=== PATIENT | female | born 1990 | race Caucasian/White ===

== ENCOUNTER 2020-01-22 10:45 | Outpatient (CLI) | payer OTHER, SELFPAY ==
--- NOTE | ~2020-01-22 | US_ITS ---
EXAMINATION: US OB <= 14 weeks fetus DATE: 01/22/2020 12:08 INDICATION: Suppression of menstruation TECHNIQUE: Real-time transabdominal obstetric ultrasound. FINDINGS: No prior studies for comparison. The uterus measures 11.2 x 6.5 x 7.9 cm. There is an intrauterine gestational sac, with pole id entified. The crown rump length measures 1.26 cm, which correlates with a estimated gestational age of 7 weeks 3 days. heart tones are identified measuring 165 bpm. There is a small subchorioni c hemorrhage measuring 1.4 x 0.4 x 0.9 cm. Right ovary is normal measuring 3.1 x 1 x 1.5 cm. There is a small 1.2 cm corpus luteal cyst left ovary which measures 3.3 x 2 x 2.2 cm. IMPRESSION: 1. SL IUP with an EGA of 7 weeks, 3 days (EDC by current ultrasound of 09/06/2020). 2: Small subchorionic hemorrhage. Reviewed, dictated and finalized at location A. IMPRESSION: 1. SL IUP with an EGA of 7 weeks, 3 days (EDC by current ultrasound of 09/06/20 20). 2: Small subchorionic hemorrhage.
== END 2020-01-22 10:46 | disposition home or self-care (01) ==
LOC: CHSIMG 10:49
PROVIDERS: PCP Obstetrics & Gynecology; Visit Provider Obstetrics & Gynecology
DX: N92.5 Other specified irregular menstruation (principal)
CPT/HCPCS: 76801

== ENCOUNTER 2020-05-14 20:50 | Observation (INO) | payer OTHER, SELFPAY ==
[2020-05-14 21:13] VITALS: BMI 27.4
--- NOTE | 2020-05-14 21:13 | OBADM ---
This patient, Halie Ashraf, admitted to the OB room OB Post 113 for observation. Patient/family oriented to hospital policies and general routines including ID bracelet, bed and alarms, visiting hours, pain management, procedures, bathroom and other care routines, personal items, smoking policy, room service/diet, and visiting hours. Patient/Family are encouraged to report perceived risks to care and to ask questions if they do not understand what they are told or what they should do.
--- NOTE | 2020-05-18 21:11 | PM.OBTRLD ---
OB - Triage/Final Diagnosis Final Diagnosis (1) False labor: Code(s): O47.9 - False labor, unspecified Status: Acute
== END 2020-05-14 22:04 | disposition home or self-care (01) ==
PROVIDERS: Admitting Provider Obstetrics & Gynecology; Visit Provider Obstetrics & Gynecology
DX: O47.9 False labor, unspecified (principal); Z3A.00 Weeks of gestation of pregnancy not specified
CPT/HCPCS: G0378; G0379

== ENCOUNTER → 2020-06-06 | Emergency (ER) | payer OTHER, SELFPAY ==
--- NOTE | 2020-06-06 14:57 | PC.NURSE ---
Patient presents to intake and states that she changed her mind and does not want to be seen at this time. She is leaving the ED prior to being triaged.
== END | disposition left against medical advice (07) ==
LOC: ANHED 09-22 13:16
DX: Z53.21 Procedure and treatment not carried out due to patient leaving prior to being seen by health care provider (principal)
CPT/HCPCS: 99199

== ENCOUNTER 2020-06-07 10:27 | Emergency (ER) | payer OTHER, SELFPAY ==
--- NOTE | ~2020-06-07 | XR_ITS ---
XR chest 1V portable DATE: 06/07/2020 11:45 INDICATION: Shortness of breath and cough. Sore throat. TECHNIQUE: Portable AP chest on 06/07/2020 at 1139 hours COMPARISON: None FINDINGS: Normal heart size. No hilar or mediastinal enlargement. The lungs are clear of infiltrate o r consolidation. No pleural effusion or pulmonary vascular congestion or pneumothorax. IMPRESSION: No active cardiopulmonary disease Reviewed, dictated and finalized at location A.
[2020-06-07 10:34] VITALS: BP 132/77; PULSE 103; RESP 18; TEMP 36.8; O2SAT 100
--- NOTE | 2020-06-07 11:59 | ED.URI ---
HPI - URI/Sore Throat General Chief Complaint: Upper Respiratory Infection <MIGEL Garcia Last Filed: 06/07/20 13:50> Stated Complaint: congested/cough <MIGEL Garcia Last Filed: 06/07/20 13:50> Time Seen by Provider: 06/07/20 10:34 <MIGEL Garcia Last Filed: 06/07/20 13:50> Source: patient <MIGEL Gacria Last Filed: 06/07/20 13:50> Mode of arrival: ambulatory <MIGEL Garcia Last Filed: 06/07/20 13:50> Limitations: no limitations <MIGEL Garcia Last Filed: 06/07/20 13:50> History of Present Illness HPI Narrative: Patient is a 29-year-old female who presents with upper respiratory symptoms for the last 7 days patient is currently 27 weeks patient is G 9 P1. Patient notes nonproductive cough chills some dyspnea congestion rhinorrhea. Patient took Mucinex today. Patient denies any vomiting diarrhea abdominal pain pelvic pain vaginal bleeding or discharge. Patient is 28 weeks per ultrasound followed by Dr. Acosta. Patient on arrival in no distress. Patient notes that she also has a sick child. Patient denies any other COVID or sick exposures <MIGEL Garcia Last Filed: 06/07/20 13:50> Related Data Home Medications: Home Medications Medication Instructions Recorded Confirmed PNV cmb#95-ferrous fumarate-FA tablet PO 06/07/20 [] aspirin [Aspir-81] 06/07/20 <MIGEL Garcia Last Filed: 06/07/20 13:50> Allergies/Adverse Reactions: Allergies Allergy/AdvReac Type Severity Reaction Status Date / Time vancomycin Allergy Severe Anaphylactic Verified 06/07/20 10:36 Shock Sulfa (Sulfonamide Allergy Mild Hives / Verified 06/07/20 10:36 Antibiotics) Red Face <MIGEL Garcia Last Filed: 06/07/20 13:50> Review of Systems Review of Systems: All systems reviewed & are unremarkable except as noted in HPI and below <MIGEL Garcia Last Filed: 06/07/20 13:50> [facility] Social History Social History: Social History (Updated 06/07/20 @ 12:01 by Awais Buckner PA-C) Smoking status: Never smoker Gender identity (if verbalized by the patient): Female <Awais Buckner PA-C - Last Filed: 06/07/20 13:50> Exam Narrative: Exam Narrative: GENERAL: Well-appearing, well-nourished, and in no acute distress. HEAD: Normocephalic, atraumatic. EYES: PERRLA and EOMI. ENT: Nares clear, no rhinorrhea or epistaxis. Mucous membranes moist. Oropharynx without tonsillar hypertrophy exudate or other lesions. NECK: Supple. No adenopathy or masses. CHEST: Clear to auscultation. No respiratory distress. No wheezes rales or rhonchi HEART: Regular rate and rhythm. No murmur heard. Normal peripheral pulses. ABDOMEN: Soft, nontender,distended EXTREMITIES: Normal range of motion. No edema. SKIN: Warm, dry, no rash. NEURO: No focal deficits. Alert and oriented x3. PSYCH: Normal mood and affect. <Awais Buckner PA-C - Last Filed: 06/07/20 13:50> Course Course Emergency Course: Patient in the room in no distress resting comfortably had normal findings on blood work with no pneumonia seen on chest x-ray are auscultated on exam patient with no abdominal or pelvic complaints heart tones were obtained and normal. Discussion was made with ore puncher who is aware of the COVID testing and recommends close follow-up. <Awais Buckner PA-C - Last Filed: 06/07/20 13:50> Consultations Consultation #1: Spoke with on-call ore puncher Dr. Dawson regarding the patient's clinical presentation and findings recommends that the patient can follow-up outpatient and will follow the COVID testing. Recommend supportive care medications to treat her symptoms and would like the patient to be given reasons to return <Awais Buckner PA-C - Last Filed: 06/07/20 13:50> Date: 06/07/20 <Awais Buckner PA-C - Last Filed: 06/07/20 13:50> Time:
[2020-06-07] MEDS: FAMOTIDINE 20 MG/2 ML VIAL IV PUSH (12:16)
[2020-06-07] MEDS: SODIUM CHLORIDE 0.9% IV 1,000 ML 999 ML IV CONT (12:16)
[2020-06-07 12:20] LABS: Basophils Absolute Auto 0.1 K/mm3 (0.0-0.1); Basophils Percent Auto 0.4 % (0.2-1.2); Eosinophils Absolute Auto 0.2 K/mm3 (0-0.3); Eosinophils Percent Auto 1.7 % (0-4.4); Hematocrit 35.3 % (37.0-47.0); Hemoglobin 12.2 g/dL (12.0-15.0); Immature Granulocyte Absolute 0.13 K/mm3 (0.00-0.031); Lymphocytes Absolute Auto 1.21 K/mm3 (0.9-3.2); Lymphocytes Percent Auto 9.1 % (18.3-44.2); Mean Corpuscular HGB Conc 34.6 g/dl (32-36); Mean Corpuscular Hemoglobin 30.6 pg (26-34); Mean Corpuscular Volume 88.5 fl (80-100); Mean Platelet Volume 10.3 fl (7.4-10.4); Monocytes Absolute Auto 0.8 K/mm3 (0.1-0.6); Monocytes Percent Auto 6.1 % (2.6-8.5); Neutrophils Absolute Auto 10.9 K/mm3 (1.3-6.7); Neutrophils Percent Auto 81.7 % (45.5-73.1); Platelet Count Result 215 k/mm3 (150-375); Red Blood Count 3.99 M/mm3 (4.2-5.4); Red Cell Distribution Width 13.2 % (11.5-14.5); White Blood Count 13.3 K/mm3 (4.5-10.0)
[2020-06-07 12:36] LABS: Lactic Acid Reflex 1.1 mmol/L (0.7-2.1)
[2020-06-07 12:37] LABS: Alanine Aminotransferase 12 U/L (4-35); Albumin Level 3.3 g/dL (3.5-5.1); Alkaline Phosphatase 103 U/L (38-126); Anion Gap 9.4 mmol/L (7-16); Aspartate Amino Transferase 17 U/L (14-36); Bilirubin,Total 0.1 mg/dL (0.2-1.3); Blood Urea Nitrogen 6 mg/dL (7-17); Calcium 8.2 mg/dL (8.4-10.2); Carbon Dioxide 22 mmol/L (22-30); Chloride 107 mmol/L (98-107); Estimated CRCL calculation 191 ml/min; Estimated Glomerular Filt Rate > 60; Glucose 106 mg/dL (65-105); Potassium 3.4 mmol/L (3.4-5.0); Sodium 135 mmol/L (137-145)
[2020-06-07 13:24] VITALS: BP 136/84; PULSE 94; RESP 17; O2SAT 98
[2020-06-10 03:17] LABS: SARS-CoV-2 RNA PCR Negative
== END 2020-06-07 14:14 | disposition home or self-care (01) ==
PROVIDERS: Emergency Medicine Emergency Medical Services; Emergency Provider General Practice
DX: O99.513 Diseases of the respiratory system complicating pregnancy, third trimester (principal); J06.9 Acute upper respiratory infection, unspecified; Z20.828 Contact with and (suspected) exposure to other viral communicable diseases; Z3A.28 28 weeks gestation of pregnancy
CPT/HCPCS: 36415; 71045; 80053; 83605; 85025; 87040; 87635; 96374; 96375; 99284; C9803; J0131; J7030; U0003

== ENCOUNTER 2020-06-26 09:41 | Outpatient (CLI) | payer OTHER, SELFPAY ==
[2020-06-26 11:08] LABS: Hematocrit 37.3 % (37.0-47.0); Hemoglobin 12.8 g/dL (12.0-15.0)
[2020-06-26 11:23] LABS: Glucose 1 Hour PP 50gm Dose 132 mg/dL
[2020-06-26 12:05] LABS: HIV 1/2 Ab P24 Ag Result Negative (Negative)
== END 2020-06-26 09:42 | disposition home or self-care (01) ==
LOC: ANHLAB 09:42
PROVIDERS: Visit Provider Obstetrics & Gynecology
DX: Z34.92 Encounter for supervision of normal pregnancy, unspecified, second trimester (principal); Z3A.00 Weeks of gestation of pregnancy not specified
CPT/HCPCS: 36415; 82947; 85014; 85018; 86703; G0432

== ENCOUNTER 2020-08-29 12:01 | Outpatient (CLI) | payer OTHER, SELFPAY ==
[2020-08-29 12:41] LABS: Hematocrit 36.2 % (37.0-47.0); Hemoglobin 12.3 g/dL (12.0-15.0); Mean Corpuscular Hemoglobin 29.3 pg (26-34); Mean Corpuscular Volume 86.2 fl (80-100); Mean Platelet Volume 9.8 fl (7.4-10.4); Platelet Count Result 231 k/mm3 (150-375); Red Cell Distribution Width 13.5 % (11.5-14.5); White Blood Count 15.3 K/mm3 (4.5-10.0)
[2020-08-31 08:22] LABS: Rapid Plasma Reagin Non-Reactive (NonReactive)
== END 2020-08-29 12:02 | disposition home or self-care (01) ==
PROVIDERS: Visit Provider Obstetrics & Gynecology
DX: Z01.818 Encounter for other preprocedural examination (principal)
CPT/HCPCS: 36415; 85027; 86592; 86850; 86900; 86901

== ENCOUNTER 2020-08-31 05:29 | Inpatient (IN) | payer OTHER, SELFPAY ==
--- NOTE | 2020-08-30 08:56 | WPDANESEPP ---
Anes - Eval Pre Procedure Procedure: Operation Date: 08/31/20 07:30 Proposed Procedures p Primary Section - Moe Acosta MD Date/Time: 08/30/20 08:56 Surgeon: Karla Preop Diagnosis: primary c section Pre Op Diagnosis: Pre-admit- herpes outbreak Patient Data Age: 29 Gender: F Height: Weight: Allergies Allergy/AdvReac Type Severity Reaction Status Date / Time vancomycin Allergy Severe Anaphylactic Verified 06/07/20 10:36 Shock Sulfa (Sulfonamide Allergy Mild Hives / Verified 06/07/20 10:36 Antibiotics) Red Face Home Medications Medication Instructions Recorded Confirmed Type PNV cmb#95-ferrous fumarate-FA 1 tablet PO DAILY 08/15/20 08/15/20 History [] aspirin 81 mg PO DAILY 08/15/20 08/15/20 History Patient hx anesthesia problems: none Family hx anesthesia problems: none PMFSH Family History Family History (Updated 08/15/20 @ 13:32 by Saleem Mathis RN) Other No pertinent family history Social History Social History (Updated 06/07/20 @ 12:01 by Awais Buckner PA-C) Smoking status: Never smoker Substance use: never Gender identity (if verbalized by the patient): Female Spiritual care concerns: No Exam Day of Procedure 08/30/20 08:56
[2020-08-31] VITALS (48 sets, daily range): BP systolic 98–124; BP diastolic 49–78; PULSE 60–98; RESP 14–20; TEMP 36.1–37.2; O2SAT 96–100; BMI 30.8
[2020-08-31] MEDS: LACTATED RINGERS 1,000 ML 999 ML IV CONT ×2 (06:14→06:52)
--- NOTE | 2020-08-31 07:13 | PM.IMHP ---
H&P: HPI History of Present Illness Date/Time: 08/31/20 07:13 Chief complaint: C/S Narrative: Halie Ashraf is a 29 year old female presents for primary low transverse section. Had a previous vaginal delivery without complication. care without abnormality though she does have a history of herpes simplex and was found to have lesion early last week. Options were discussed and she has decided to proceed with delivery. Review of Systems Review of Systems: All systems reviewed & are unremarkable except as noted in HPI and below PMFSH Family History Family History Other No pertinent family history Social History Social History Smoking status: Never smoker Second hand tobacco smoke exposure: No Substance use: never Gender identity (if verbalized by the patient): Female Spiritual care concerns: No Meds Home Medications and Allergies Home Medications Medication Instructions Recorded Confirmed Type PNV cmb#95-ferrous fumarate-FA 1 tablet PO DAILY 08/15/20 08/15/20 History [] aspirin 81 mg PO DAILY 08/15/20 08/15/20 History Allergies Allergy/AdvReac Type Severity Reaction Status Date / Time vancomycin Allergy Severe Anaphylactic Verified 06/07/20 10:36 Shock Sulfa (Sulfonamide Allergy Mild Hives / Verified 06/07/20 10:36 Antibiotics) Red Face Vital Signs Vital Signs - 24 hr 08/31/20 06:01 08/31/20 06:30 Pulse Rate 80 70 Blood Pressure 124/77 120/76 Exam Const: General: cooperative Resp: Effort & Inspection: normal respiratory effort Cardio: Rate: regular rate Rhythm: regular rhythm GI: Inspection: normal to inspection ( Fundal height 40cm heart tones 140) : Manual OB Exam: Deferred manual OB exam Assessment and Plan Assessment and plan (1) 39 weeks gestation of : Code(s): Z3A.39 - 39 weeks gestation of Status: Acute (2) HSV (herpes simplex virus) infection: Code(s): B00.9 - Herpesviral infection, unspecified Status: Acute
--- NOTE | 2020-08-31 07:16 | WPDHPUPDATE1 ---
History and Physical Update Update Date/Time: 08/31/20 07:16 History and Physical has been reviewed, including an updated exam of the patient. There are NO changes in the patient's condition. Risks, benefits, and alternatives have been discussed and questions answered. Patient agrees to proceed with procedure.
--- NOTE | 2020-08-31 07:17 | WPDANESEPPF ---
Anes - Initial Pre Proc Eval Procedure: Operation Date: 08/31/20 07:30 Proposed Procedures p Primary Section - Moe Acosta MD Date/Time: 08/31/20 07:17 Surgeon: Moe Acosta MD Pre Op Diagnosis: C/S Patient Data Age: 29 Gender: F Height: 1.73 m Weight: 92 kg Last Vital Signs Pulse 70 08/31/20 06:30 BP 120/76 08/31/20 06:30 Allergies Allergy/AdvReac Type Severity Reaction Status Date / Time vancomycin Allergy Severe Anaphylactic Verified 06/07/20 10:36 Shock Sulfa (Sulfonamide Allergy Mild Hives / Verified 06/07/20 10:36 Antibiotics) Red Face Home Medications Medication Instructions Recorded Confirmed Type PNV cmb#95-ferrous fumarate-FA 1 tablet PO DAILY 08/15/20 08/15/20 History [] aspirin 81 mg PO DAILY 08/15/20 08/15/20 History Patient hx anesthesia problems: none Family hx anesthesia problems: none PMFSH Family History Family History Other No pertinent family history Social History Social History Smoking status: Never smoker Second hand tobacco smoke exposure: No Substance use: never Gender identity (if verbalized by the patient): Female Spiritual care concerns: No Anes - Eval Final PreProcedure Day of Procedure 08/31/20 07:17 Patient weight: overweight Heart: regular rate and rhythm Lungs: clear to auscultation and normal air movement Airway: Mallampati scale class II Neurological: alert and oriented Last oral intake: >/= 8 hours ASA classification: II Emergent: no Anesthetic plan: proceed Anesthesia type and monitoring: regional spinal Informed Consent: The patient's anesthetic plan and its attendant risks and benefits were discussed with the patient/family/POA. Questions were solicited and answers provided to the satisfaction of the patient/family/POA.
[2020-08-31] MEDS: ceFAZolin 2 GM/D5W 50 ML 2 GM/50 ML BAG IVPB (07:20)
--- NOTE | 2020-08-31 08:03 | PM.OBPRVD ---
OB - Delivery Note Procedure Procedure: Procedures Operation Date: 08/31/20 07:30 <No data on this case meets the specified criteria> Route of delivery: Specimen: Yes Estimated blood loss (mL): 500 Anesthesia type: Spinal Disposition: PACU Narrative: Patient prepped and draped in usual manner for this procedure. Pfannenstiel incision was made which was then carried down fascia which was extended bilaterally the length of the skin incision. Superiorly and inferiorly dissected away for rectus muscles and the peritoneum was readily entered prior to the bladder flap being formed. Uterus was scored and incised in the lower segment with clear fluid noted. Vertex was delivered without difficulty rest of baby as well and the placenta also was delivered after the cord had been clamped and cut. Uterus was exteriorized cleared of membranes and clots and approximated using 0 Monocryl suture in a running interlocking manner with good approximation and hemostasis noted. Uterus was returned to the abdomen gutters were cleared of serosanguineous fluid and clots and the uterine incision was again inspected and noted to be hemostatic. Fascia was approximated using 0 Vicryl from the left angle midline in the right angle midline with good approximation hemostasis noted. Subcutaneous tissue was hemostatic and approximated using 0 plain suture. Kaitlin were used to approximate the skin edges. [place] Baby Weeks of gestation at delivery: 39 Infant gender: Male Weight (pounds): 8 Weight (ounces): 5 score one minute: 8 score five minutes: 9
[2020-08-31] MEDS: ONDANSETRON INJ 4 MG/2 ML VIAL IV PUSH (09:09)
[2020-08-31] MEDS: OXYTOCIN 30 UNITS/NS 500 ML 30 UNITS/500 ML BAG 125 UNITS IV CONT (09:11)
[2020-08-31] MEDS: KETOROLAC 30 MG/ML VIAL (*BKC) IV PUSH (13:01)
[2020-08-31] MEDS: DEXTROSE 5%/0.45% SOD CHL 1,000 ML 125 ML IV CONT (13:02)
[2020-08-31] MEDS: SIMETHICONE 80 MG TAB.CHEW PO ×2 (17:25→22:01)
[2020-08-31] MEDS: HYDROcodone/acetaminophen (*CRX) 5-325 MG TABLET 1 TAB PO ×2 (17:26→22:02)
[2020-08-31] MEDS: IBUPROFEN 600 MG TABLET PO (22:01)
[2020-09-01] MEDS: HYDROcodone/acetaminophen (*CRX) 10-325 MG TABLET 1 TAB PO ×2 (02:25→23:02)
[2020-09-01] MEDS: SIMETHICONE 80 MG TAB.CHEW PO ×3 (02:25→17:16)
[2020-09-01 04:00] VITALS: BP 115/64; PULSE 77; RESP 18; TEMP 36.7
[2020-09-01 06:11] LABS: Basophils Absolute Auto 0.1 K/mm3 (0.0-0.1); Basophils Percent Auto 0.3 % (0.2-1.2); Eosinophils Absolute Auto 0.2 K/mm3 (0-0.3); Eosinophils Percent Auto 1.1 % (0-4.4); Hematocrit 27.8 % (37.0-47.0); Hemoglobin 9.1 g/dL (12.0-15.0); Immature Granulocyte Absolute 0.12 K/mm3 (0.00-0.031); Immature Granulocyte Percent A 0.8 % (0-0.5); Lymphocytes Absolute Auto 1.66 K/mm3 (0.9-3.2); Mean Corpuscular HGB Conc 32.7 g/dl (32-36); Mean Corpuscular Hemoglobin 29.8 pg (26-34); Mean Corpuscular Volume 91.1 fl (80-100); Mean Platelet Volume 10.5 fl (7.4-10.4); Monocytes Absolute Auto 1.1 K/mm3 (0.1-0.6); Neutrophils Percent Auto 79.8 % (45.5-73.1); Platelet Count Result 181 k/mm3 (150-375); Red Blood Count 3.05 M/mm3 (4.2-5.4); Red Cell Distribution Width 13.5 % (11.5-14.5); White Blood Count 15.1 K/mm3 (4.5-10.0)
[2020-09-01 07:30] VITALS: BP 114/68; PULSE 81; RESP 18; TEMP 37.2; O2SAT 99
[2020-09-01] MEDS: MULTIVIT/MIN/PREN/FOL AC/IRON TABLET 1 TAB PO (07:33)
[2020-09-01] MEDS: DOCUSATE SODIUM 100 MG CAPSULE PO ×2 (07:33→17:12)
[2020-09-01] MEDS: POLYSACCHARIDE IRON COMPLEX 150 MG CAPSULE PO ×2 (07:33→17:12)
[2020-09-01] MEDS: IBUPROFEN 600 MG TABLET PO ×3 (07:34→23:02)
--- NOTE | 2020-09-01 08:15 | PC.NURSE ---
Consulted with patient, mother reports this to be second child to breastfeed, exclusively for 1 year with first. Mother plans to supplement and/or EBM with this child. . Reviewed infant feeding cues, frequencies, duration of feedings, feeding elimination flow sheet, and signs of adequate intake. Demonstrated stimulation techniques to wake for feeding. Assisted with to breast. Reviewed positioning/alignment in cross cradle, holding breast in U hold and guided asymmetrical latch on. discussed rational for each. Infant was able to latch correctly with first attempt. Infant nursed eagerly, with steady draws and frequent swallowing noted. Reviewed signs of a correct latch, effective nursing and suck swallow ratio. Infant was able to maintain latch without discomfort to mother. Nipple care reviewed. Suggested to stimulate while feeding to keep infant awake and nursing effectively for increased intake and to assist with maintaining deep latch. Instructed mother to call out for RN assistance if she is unable to latch infant for feeding or she has discomfort with nursing. Instructed feeding should be initiated three hours from start of last feeding or if feeding cues are noted before. Mother voiced understanding of information shared.
--- NOTE | 2020-09-01 11:17 | WPDANLDPN2 ---
Anes-Prog Note L&D Date/Time: 09/01/20 11:17 Comfortable throughout: section Neuraxial method: spinal Epidural/Spinal procedure site: clean & non-tender Neuro status: Neuro function grossly intact. Cardiovascular status: normal Respiratory status: normal Airway patency: baseline Mental status: baseline Post-Op hydration status: normal Vital Signs: Last Vital Signs Temp 37.2 C 09/01/20 07:30 Pulse 81 09/01/20 07:30 Resp 18 09/01/20 07:30 BP 114/68 09/01/20 07:30 Pulse Ox 99 09/01/20 07:30 Pain score (VAS): 0 I/O: Intake & Output 08/31/20 09/01/20 09/01/20 23:59 07:59 15:59 Intake Total 2000 3000 Output Total 450 2950 Balance 1550 50 Post-procedural complaints: pruritis moderate, treatment effective Patient feedback: Patient satisfied with anesthetic care.
--- NOTE | 2020-09-01 11:17 | WPDANLDNPN2 ---
Anes-Prog Note L&D-Neuraxial Date/Time: 09/01/20 11:17 Neuraxial medications: intrathecal PF morphine Opiod-related complaints: pruritis Patient feedback: Patient satisfied with post-operative pain management.
--- NOTE | 2020-09-01 12:06 | P.DS_ITS ---
DS: Admitting Diagnosis Admitting Diagnosis Admitting Diagnosis: C/S OB - DS: Summary OB Procedures : None OB Procedures Intrapartum: OB Procedures: : None Peripartum Data Procedures: Procedures Operation Date: 08/31/20 07:30 Actual Procedures Side Surgeon p Primary Section Not Applicable Moe Acosta MD Time Spent with Patient Time attestation: Total time spent providing and/or coordinating discharge services: DS: Data Data Completed and Pending Pending studies at discharge: Pending at discharge 08/31/20 07:35 Surgical [PTH] Routine Labs on day of discharge: Labs from last 24 hours 09/01/20 04:46 WBC 15.1 H RBC 3.05 L Hgb 9.1 L D Hct 27.8 L MCV 91.1 D MCH 29.8 MCHC 32.7 RDW 13.5 Plt Count 181 MPV 10.5 H Immature Gran % (Auto) 0.8 H Neut % (Auto) 79.8 H Lymph % (Auto) 11.0 L [place] % (Auto) 7.0 Eos % (Auto) 1.1 Baso % (Auto) 0.3 Lymph # (Auto) 1.66 [place] # (Auto) 1.1 H Eos # (Auto) 0.2 Baso # (Auto) 0.1 Abs Immat Gran (auto) 0.12 H Absolute Neuts (auto) 12.0 H Absolute Nucleated RBC 0.0 Nucleated RBC % 0.0 Discharge Plan Discharge Discharging Clinician: Moe Acosta Patient Disposition: Home, Self-Care Activity: as tolerated Diet: as tolerated Wound Care Instructions: incision open to air Discharge Instructions: office monday for staple removal Patient Instructions: Antibiotic Form Stand Alone Forms: General Discharge Information Follow-up/Referrals: Moe Acosta MD [Physician] - 3 Weeks Discharge Medications: New hydrocodone-acetaminophen 5-325 mg Tablet 1 tab PO Q6H Qty: 20 RF: 0 ibuprofen 600 mg Tablet 600 mg PO Q6H PRN (Reason: Cramping) Qty: 30 RF: 0 Continued PNV cmb#95-ferrous fumarate-FA [] 28 mg iron- 800 mcg Tablet 1 tablet PO DAILY RF: 0 Discontinued aspirin 81 mg Tablet,Chewable 81 mg PO DAILY RF: 0 Date of admission: 08/31/20 05:29 Primary Care Provider: PHYSICIAN,[facility] Admitting Provider: Moe Acosta Attending physician on admission: Moe Acosta Condition: Stable
[2020-09-01] MEDS: TETANUS,DIPHTHERIA,AC PERTUSSIS ADULT (0.5 ML) BOOSTRIX IM (13:11)
[2020-09-01] MEDS: HYDROcodone/acetaminophen (*CRX) 5-325 MG TABLET 1 TAB PO ×2 (13:11→17:12)
[2020-09-01 20:00] VITALS: BP 109/66; PULSE 88; RESP 16; TEMP 36.7; O2SAT 96
[2020-09-02] MEDS: POLYSACCHARIDE IRON COMPLEX 150 MG CAPSULE PO (07:27)
[2020-09-02] MEDS: DOCUSATE SODIUM 100 MG CAPSULE PO (07:27)
[2020-09-02] MEDS: IBUPROFEN 600 MG TABLET PO ×2 (07:28→14:20)
[2020-09-02] MEDS: MULTIVIT/MIN/PREN/FOL AC/IRON TABLET 1 TAB PO (07:28)
[2020-09-02] MEDS: HYDROcodone/acetaminophen (*CRX) 5-325 MG TABLET 1 TAB PO ×2 (07:29→14:21)
[2020-09-02] MEDS: SIMETHICONE 80 MG TAB.CHEW PO (07:30)
[2020-09-02 07:40] VITALS: BP 117/71; PULSE 85; RESP 18; TEMP 36.8; O2SAT 98
--- NOTE | 2020-09-02 10:07 | PC.NURSE ---
Patient viewed the discharge video Mother & Baby Care, The First Two Weeks . Patient was given the opportunity and encouraged to ask questions. Patient verbalized understanding of information shared and has been given the mother/baby guide for home reference.
[2020-09-03 10:25] VITALS: BP 128/74; PULSE 80; RESP 20; TEMP 36.9; O2SAT 98
--- NOTE | 2020-09-05 08:56 | PM.OBDSVD ---
DS: Admitting Diagnosis Admitting Diagnosis Admitting Diagnosis: C/S OB - DS: Summary OB Procedures : None OB Procedures Intrapartum: OB Procedures: : None Peripartum Data Procedures: Procedures Operation Date: 08/31/20 07:30 Actual Procedures Side Surgeon p Primary Section Not Applicable Moe Acosta MD Time Spent with Patient Time attestation: Total time spent providing and/or coordinating discharge services: DS: Data Data Completed and Pending Completed studies during hospitalization: Pending at discharge 08/31/20 07:35 Surgical [PTH] Routine Discharge Plan Discharge Consulting providers: German Amador Discharging Clinician: Moe Acosta Patient Disposition: Home, Self-Care Activity: as tolerated Diet: as tolerated Wound Care Instructions: incision open to air Discharge Instructions: office monday for staple removal Education: Mom and Baby Guide Given to: Mother Follow-Up: Call your delivering provider's office for an appointment to be seen in: Monday for staple removal Mom and baby should come to the [facility] for the follow-up appointment. Appointment Date/Time: September 03, 2020 at 10:00 am What to expect at your follow-up visit: Physical Assessment Call [phone] if you are unable to keep your appointment time. BREAST CARE: * Wear a snug supportive bra. * For engorgement discomfort: Breast Feeding: * Apply warm moist washcloths * Express milk as needed to relieve engorgement * Wear loose clothing * For sore nipples: * Identify correct latch-on * Apply warm moist washcloths before and after nursing * Air dry nipples after nursing * May apply Lansinoh cream to nipples ABDOMINAL INCISION: (if applicable) * Allow incision to air dry * Do NOT use lotions for powders on your incision * When showering, allow soap and water to run over the incision, but do not wash incision EPISIOTOMY/PERINEAL CARE: * Until bleeding stops, use your alessia bottle after urinating * Change your pad frequently throughout the day * No tub baths until seen by your physician - You may shower ACTIVITY: * Rest as much as possible. * Do not exercise or lift anything heavier than your baby (such as laundry or other children.) * Avoid stairs or driving as much as possible. * Do not put anything into the vagina. No douching, tampons, or sexual activity until seen by physician. NOTIFY PHYSICIAN IF YOU HAVE ANY QUESTIONS OR IF ANY OF THE FOLLOWING SYMPTOMS OCCUR: * If your incision becomes red, swollen, or more painful than what you have experienced in the hospital. * If your vaginal bleeding becomes foul smelling. * If your vaginal bleeding becomes more heavy than a period or if your bleeding changes from pink to bright red. However, you may pass an occasional walnut-sized clot once or twice for the first week . * If you experience a sharp, shooting pain in you calves. * If you discover a hard, reddened area on your breast or if you experience flu-like symptoms. DIET: * Eat regular, well-balanced meals. * Drink plenty of fluids daily. If , drink to thirst. Stand Alone Forms: General Discharge Information Follow-up/Referrals: Moe Acosta MD [Physician] - 3 Weeks Discharge Medications: New hydrocodone-acetaminophen 5-325 mg Tablet 1 tab PO Q6H Qty: 20 RF: 0 ibuprofen 600 mg Tablet 600 mg PO Q6H PRN (Reason: Cramping) Qty: 30 RF: 0 Continued PNV cmb#95-ferrous fumarate-FA [] 28 mg iron- 800 mcg Tablet 1 tablet PO DAILY RF: 0 Discontinued aspirin 81 mg Tablet,Chewable 81 mg PO DAILY RF: 0 Date of admission: 08/31/20 05:29 Primary Care Provider: PHYSICIAN,TANBARK PEELER Admitting Provider: Moe Acosta Attending physician on admission: Moe Acosta
== END 2020-09-02 15:09 | disposition home or self-care (01) | DRG 540 ==
LOC: ANHLDR 05:34 → ANHOB2 10:50
PROVIDERS: Admitting Provider Obstetrics & Gynecology; Visit Provider Obstetrics & Gynecology
PROC: 10D00Z1 Extraction of Products of Conception, Low, Open Approach (ICD-10-PCS; CPT 59514; principal; 2020-08-31 07:30)
DX: O98.52 Other viral diseases complicating childbirth (principal); B00.9 Herpesviral infection, unspecified; Z3A.39 39 weeks gestation of pregnancy; Z37.0 Single live birth
CPT/HCPCS: 36415; 85025; 88307; 90715; A9270; J0131; J0690; J1885; J2274; J2370; J2405; J2590; J7120

== ENCOUNTER 2020-09-05 19:09 | Outpatient (CLI) | payer OTHER, SELFPAY ==
[2020-09-05 19:22] VITALS: BP 129/85
[2020-09-05 19:31] VITALS: BP 129/75
[2020-09-05 19:46] VITALS: BP 131/78
--- NOTE | 2020-09-05 20:10 | PC.NURSE ---
1920 - pt BP obtained; pt states no visual changes, no epigastric pain, 1+ pitting edema noted bilaterally on legs, complains of WELLS with a pain level of 6-7. Pt states she hasn't eaten since lunch. Soda, chips, and sandwich given, as well as an ice pack for WELLS. 1954 - pt states her pain level is 3 and feeling much better.
== END 2020-09-05 20:26 | disposition home or self-care (01) ==
LOC: ANHOBOP 19:19 → ANHOBPP 21:32
PROVIDERS: Visit Provider Obstetrics & Gynecology
DX: O13.9 Gestational [pregnancy-induced] hypertension without significant proteinuria, unspecified trimester (principal)
CPT/HCPCS: 99199

== ENCOUNTER 2021-03-01 18:25 | Emergency (ER) | payer OTHER, SELFPAY ==
[2021-03-01 19:29] VITALS: BP 112/68; PULSE 73; RESP 16; TEMP 36.6; O2SAT 100
== END 2021-03-01 20:29 | disposition left against medical advice (07) ==
PROVIDERS: PCP Internal Medicine
DX: R51.9 Headache, unspecified (principal)
CPT/HCPCS: 99199

== ENCOUNTER 2021-07-04 09:09 | Emergency (ER) | payer OTHER, SELFPAY ==
--- NOTE | ~2021-07-04 | XR_ITS ---
XR chest 1V portable DATE: 07/04/2021 09:32 INDICATION: Cough, chest heaviness TECHNIQUE: Portable upright AP chest on 07/04/2021 at 0928 hours COMPARISON: 06/07/2020 portable AP chest FINDINGS: Normal heart size. No hilar or mediastinal enlargement. No pulmonary infiltrate or consolid ation, pleural effusion or pulmonary venous congestion or pneumothorax. Included skeletal structures are unremarkable. IMPRESSION: No active cardiopulmonary disease Reviewed, dictated and finalized at location A.
--- NOTE | 2021-07-04 09:17 | ECG_ITS ---
Measurements Intervals Gamaliel Rate: 96 P: 62 IA: 123 QRS: 57 QRSD: 105 T: 41 QT: 371 QTc: 470 Interpretive Statements SINUS RHYTHM POSSIBLE LEFT ATRIAL ENLARGEMENT DELAYED PRECORDIAL R/S TRANSITION BASELINE ARTIFACT- II, V1, V4-V6 BORDERLINE ECG Electronically Signed On 07-04-2021 13:27:00 CDT by Quintin Grace D.O.
[2021-07-04 09:18] VITALS: BP 117/79; PULSE 98; RESP 21; TEMP 36.7; O2SAT 97; O2SAT 98
[2021-07-04 09:20] VITALS: BP 117/79; PULSE 90; RESP 18; O2SAT 97
[2021-07-04 10:30] VITALS: BP 119/82; PULSE 87; RESP 12; O2SAT 99
[2021-07-04 10:50] LABS: Basophils Percent Auto 0.3 % (0.2-1.2); Eosinophils Absolute Auto 0.2 K/mm3 (0-0.3); Eosinophils Percent Auto 2.3 % (0-4.4); Hematocrit 39.3 % (37.0-47.0); Hemoglobin 13.1 g/dL (12.0-15.0); Immature Granulocyte Absolute 0.04 K/mm3 (0.00-0.031); Immature Granulocyte Percent A 0.4 % (0-0.5); Lymphocytes Absolute Auto 1.22 K/mm3 (0.9-3.2); Lymphocytes Percent Auto 12.3 % (18.3-44.2); Mean Corpuscular HGB Conc 33.3 g/dl (32-36); Mean Corpuscular Hemoglobin 29.4 pg (26-34); Mean Corpuscular Volume 88.3 fl (80-100); Mean Platelet Volume 10.3 fl (7.4-10.4); Monocytes Absolute Auto 0.8 K/mm3 (0.1-0.6); Monocytes Percent Auto 7.6 % (2.6-8.5); Neutrophils Absolute Auto 7.6 K/mm3 (1.3-6.7); Neutrophils Percent Auto 77.1 % (45.5-73.1); Platelet Count Result 269 k/mm3 (150-375); Red Blood Count 4.45 M/mm3 (4.2-5.4); Red Cell Distribution Width 12.7 % (11.5-14.5); White Blood Count 9.9 K/mm3 (4.5-10.0)
[2021-07-04 11:00] LABS: Alanine Aminotransferase 15 U/L (4-35); Albumin Level 4.3 g/dL (3.5-5.1); Alkaline Phosphatase 70 U/L (38-126); Anion Gap 9 mmol/L (8-16); Aspartate Amino Transferase 20 U/L (14-36); Bilirubin,Total 0.2 mg/dL (0.2-1.3); Blood Urea Nitrogen 13 mg/dL (7-17); Calcium 8.8 mg/dL (8.4-10.2); Carbon Dioxide 25 mmol/L (22-30); Chloride 102 mmol/L (98-107); Estimated CRCL calculation 118 ml/min; Estimated Glomerular Filt Rate > 60; Glucose 89 mg/dL (65-110); Sodium 136 mmol/L (137-145)
[2021-07-04 11:07] LABS: Troponin I < 0.012 ng/mL (0.000-0.034)
[2021-07-04 11:15] LABS: CRP 0.5 mg/dL (<1.0)
[2021-07-04 11:29] LABS: D Dimer 0.27 ug/mL (<0.48)
--- NOTE | 2021-07-04 11:47 | ED.URI ---
HPI - URI/Sore Throat General Chief Complaint: Upper Respiratory Infection Stated Complaint: cold s/sx x 7 days Time Seen by Provider: 07/04/21 09:52 Source: patient and RN notes reviewed Mode of arrival: ambulatory Limitations: no limitations History of Present Illness HPI Narrative: This is a 30 year old female who presents for evaluation of cold symptoms. PAtient states 1 week ago she develop runny nose and sinus congestion. OVer the past couple of days she has developed cough and chest congestion. She reports mild shortness of breath. Both of her kids have similar symptoms and one of them tested positive for RSV. She was concerned because her symptoms moved to her chest. She denies leg swelling and calf. She denies fever or chills. She has not taken any for her symptoms. Related Data Home Medications Medication Instructions Recorded Confirmed ergocalciferol (vitamin D2) 1,250 mcg PO WEEKLY 07/04/21 07/04/21 Allergies Allergy/AdvReac Type Severity Reaction Status Date / Time vancomycin Allergy Severe Anaphylactic Verified 07/04/21 09:23 Shock Sulfa (Sulfonamide Allergy Mild Hives / Verified 07/04/21 09:23 Antibiotics) Red Face Review of Systems Review of Systems: All systems reviewed & are unremarkable except as noted in HPI and below PMFSH Past Medical History Medical History (Updated 07/04/21 @ 11:56 by Samantha Retana MD) Patient denies medical problems Family History Family History Other No pertinent family history Social History Social History Smoking status: Never smoker Second hand tobacco smoke exposure: No Substance use: never Gender identity (if verbalized by the patient): Female Spiritual care concerns: No Exam Const: General: no acute distress and alert Orientation/consciousness: patient oriented x3 HENMT: Ears: TM's normal bilaterally Face and sinus: normal facial exam, sinuses nontender and face symmetric Mouth: Yes Normal oral and palatal mucosa present, Yes lip normal, Yes oropharynx normal and Yes moist mucous membranes Eyes: Pupils: Equal, round and reactive pupils present EOM: EOMs intact bilaterally Chest: Chest palpation & inspection: normal inspection of the chest Resp: Effort & Inspection: normal respiratory effort and no retractions Auscultation: clear to auscultation bilaterally Cardio: Rate: regular rate Rhythm: regular rhythm Heart sounds: no murmurs GI: GI Palp: Yes Soft to palpation, No Tenderness to palpation present (GI) and No Guarding due to palpation present (GI) Auscultation: normal bowel sounds Skin: General skin exam: normal color Rashes: no rashes Neuro: General: patient oriented x3, moves all extremities and CN's II-XI intact bilaterally Psych: Mental Status: mental status grossly normal Affect: normal affect Course Reevaluation(s) Reevaluation #1: I discussed with patient that labs and chest xray are unremarkable. She will be tested for covid. I have discussed treatment of URI. Date: 07/04/21 Time: 11:52 Vital Signs Vital signs: Vital Signs Temperature 98.0 F 07/04/21 09:18 Pulse Rate 98 07/04/21 09:18 Respiratory Rate 21 H 07/04/21 09:18 Blood Pressure 117/79 07/04/21 09:18 Pulse Oximetry 97 07/04/21 09:18 Temperature 98.0 F 07/04/21 09:18 Pulse Rate 84 07/04/21 12:30 Respiratory Rate 18 07/04/21 12:30 Blood Pressure 116/81 07/04/21 12:30 Pulse Oximetry 98 07/04/21 12:30 MDM - URI/Sore Throat Lab Data Attestation: I reviewed the patient's lab results. Result diagrams: 07/04/21 10:17 07/04/21 10:17 Labs: Lab Results 07/04/21 07/04/21 07/04/21 Range/Units 10:17 10:17 10:17 WBC 9.9 (4.5-10.0) K/mm3 RBC 4.45 (4.2-5.4) M/mm3 Hgb 13.1 D (12.0-15.0) g/dL Hct 39.3 (37.0-47.0) % MCV 88.3 (80-
[2021-07-04 11:50] VITALS: BP 125/96; PULSE 87; RESP 12; O2SAT 98
[2021-07-04 12:30] VITALS: BP 116/81; PULSE 84; RESP 18; O2SAT 98
[2021-07-06 01:23] LABS: SARS-CoV-2 RNA PCR Negative
== END 2021-07-04 12:34 | disposition home or self-care (01) ==
PROVIDERS: Emergency Provider General Practice
DX: J06.9 Acute upper respiratory infection, unspecified (principal); Z20.822 Contact with and (suspected) exposure to COVID-19
CPT/HCPCS: 36415; 71045; 80053; 84484; 85025; 85380; 86140; 93005; 99283; C9803; U0003; U0005